=== PATIENT | female | born 1975 ===

== ENCOUNTER 2021-08-31 17:24 | Emergency (ER) | payer BC ==
[~2021-08-31] VITALS: Ht 149.9 cm; Wt 68.0 kg
[2021-08-31 17:34] VITALS: BP 166/90
== END 2021-08-31 19:52 | disposition home or self-care (01) ==
LOC: ER 17:24
DX: F41.0 Panic disorder [episodic paroxysmal anxiety] (principal)

== ENCOUNTER 2022-06-28 13:10 | Emergency (ER) | payer BC, MEDICAID ==
[~2022-06-28] VITALS: Ht 165.1 cm; Wt 80.0 kg
[2022-06-28 14:02] LABS: Urine Bacteria NONE SEEN /hpf (None Seen); Urine Blood Negative /uL (Negative); Urine Specific Gravity 1.013 (1.001-1.035); Urine WBC 1 /hpf (0 - 5)
[2022-06-28 17:11] LABS: Basophils # (auto) 0 10 ^3/uL (0-0.2); Basophils % (auto) 0.1 % (0.0-2.0); Eosinophils # (auto) 0 10 ^3/uL (0-0.8); Eosinophils % (auto) 0.4 % (0.0-7.0); Hematocrit 32.2 % (36.0-46.0); Hemoglobin 10.2 g/dL (12.2-16.2); Lymphocytes # (auto) 1.6 10 ^3/uL (0.4-5.4); Mean Corpuscular Hemoglobin 23.9 pg (28.0-32.0); Mean Corpuscular Hgb Conc. 31.8 g/dL (32.0-36.0); Mean Corpuscular Volume 75.1 fL (80.0-100.0); Monocytes # (auto) 0.3 10 ^3/uL (0-1.3); Monocytes % (auto) 4.4 % (0.0-12.0); Neutrophils # (auto) 4.6 10 ^3/uL (1.6-8.6); Neutrophils % (auto) 70.1 % (37.0-80.0); Nucleated Red Blood Cells % 0.1 %; Red Blood Cells 4.29 10^6/uL (4.0-5.20); Red Cell Distribution Width 15.3 % (11.8-14.3); White Blood Cell 6.5 10^3/uL (4.4-10.8)
[2022-06-28 17:49] LABS: Albumin 3.7 g/dL (3.4-5.0); Calcium 8.3 mg/dL (8.5-10.1); Potassium 3.5 mmol/L (3.5-5.1)
[2022-06-28 17:52] LABS: BUN/Creatinine Ratio 10.3
[2022-06-28 17:55] LABS: Bilirubin, Total 0.6 mg/dL (0.2-1.0); Total Protein 8.7 g/dL (6.4-8.2)
[2022-06-28 21:53] VITALS: BP 127/74
== END 2022-06-28 21:53 | disposition home or self-care (01) ==
LOC: EDBD 13:10 → ER 13:10
DX: R00.2 Palpitations (principal)
CPT/HCPCS: 36415; 80053; 81001; 84439; 84443; 85025; 85379; 93005